=== PATIENT | male | born 1945 | race African-American/Black ===

== ENCOUNTER 2023-05-13 03:26 | Inpatient (IN) | payer OTHER ==
[2023-05-13] VITALS (8 sets, daily range): BP systolic 142–172; BP diastolic 63–94; PULSE 68–79; RESP 18–24; TEMP 97.8–98.6; O2SAT 95–100
[~2023-05-13] VITALS: Ht 182.9 cm; Wt 74.6 kg
[2023-05-13] MEDS ORDERED: MethylPREDNISolone SOD SUCC 125 MG/2 ML VIAL ONE (03:33)
[2023-05-13] MEDS ORDERED: FUROSEMIDE 40 MG/4 ML VIAL ONE (03:34)
[2023-05-13] MEDS ORDERED: 0.9% SODIUM CHLORIDE 10 ML SYRINGE IVP PRN (03:45)
[2023-05-13 03:48] LABS: BASOPHILS % (AUTO) 1.1 % (0.0-2.0); EOSINOPHILS % (AUTO) 1.4 % (1.0-6.0); HEMATOCRIT 27.5 % (41-53); LYMPHOCYTES # (AUTO) 5.6 K/uL (1.0-4.8); LYMPHOCYTES % (AUTO) 44.1 % (22.0-44.0); MEAN CORPUSCULAR HGB CONC 32.7 G/dL (31.0-37.0); MEAN CORPUSCULAR VOLUME 92 fL (80-100); MONOCYTES # (AUTO) 0.8 K/uL (0.1-1.0); MONOCYTES % (AUTO) 6.4 % (2.0-9.0); PLATELET COUNT (AUTO) 236 K/uL (150-450); RED CELL DISTRIBUTION WIDTH 14.6 % (11.5-14.5); WHITE BLOOD COUNT (AUTO) 12.7 K/uL (4.5-11.0)
[2023-05-13 03:48] LABS: ABG BASE EXCESS -9.6 mmol/L (-2.0-3.0); ABG CARBOXYHEMOGLOBIN 0.3 % (0.0-1.5); ABG METHEMOGLOBIN 0.6 % (0.0-1.5); ABG OXYGEN CONTENT 13.4 mL/dL (15.0-23.0); ABG OXYGEN SATURATION 95.1 % (95.0-98.0); ABG OXYHEMOGLOBIN 94.2 % (94.0-100.0); ABG PCO2 44 mmHg (35-45); ABG PH 7.229 (7.35-7.450); O2 DEVICE,BLOOD GAS BIPAP (ROOM AIR); PO2, ARTERIAL BG 90.6 mmHg (71.0-79.0); SITE, BLOOD GAS RT BRACHIAL; SOURCE, BLOOD GAS ARTERIAL; TEMPERATURE, FAHRENHEIT, BG 98.5 FAHREN (96.0-98.6)
[2023-05-13 03:49] LABS: INSPIRATORY TIME, BG 0.9 SEC; SPONTANEOUS VT, BG 418 ml
[2023-05-13 03:56] LABS: INR 1.2 (0.9-1.1); PROTHROMBIN TIME 12.1 SEC (9.4-11.6)
[2023-05-13 04:05] LABS: ANION GAP 14 mmol/L (8-16); CALCIUM, TOTAL 8.7 mg/dL (8.8-10.5); CARBON DIOXIDE 23 mmol/L (22-29); CHLORIDE 99 mmol/L (98-107); CREATININE 1.83 mg/dL (0.60-1.30); GLOMERULAR FILTR. RATE CALC 43 mL/min (>60); GLUCOSE,RANDOM 207 mg/dL (70-110); POTASSIUM 3.8 mmol/L (3.5-5.1); SODIUM SERUM 136 mmol/L (136-145); UREA NITROGEN, BLOOD 46 mg/dL (7-18)
[2023-05-13 04:07] LABS: LACTIC ACID 5.3 mmol/L (0.4-2.0)
[2023-05-13] MEDS: MethylPREDNISolone SOD SUCC 125 MG/2 ML VIAL IVP ONE (04:09)
[2023-05-13] MEDS: FUROSEMIDE 40 MG/4 ML VIAL IVP ONE (04:10)
[2023-05-13 04:12] LABS: ALANINE AMINOTRANSFERASE 18 U/L (12-78); ALBUMIN 2.7 g/dL (3.4-5.0); ALKALINE PHOSPHATASE 100 U/L (46-116); ASPARTATE AMINOTRANSFERASE 24 U/L (15-37); BILIRUBIN,TOTAL 0.4 mg/dL (0.1-1.0); CREATINE KINASE, TOTAL ONLY 144 U/L (39-308); TOTAL PROTEIN, SERUM 8.4 g/dL (6.4-8.2)
[2023-05-13 04:14] LABS: TROPONIN I-HIGH SENSITIVITY 35 ng/L (<76)
[2023-05-13 04:20] LABS: APPEARANCE,URINE CLEAR (CLEAR); BILIRUBIN,URINE NEGATIVE (NEGATIVE); COLOR,URINE COLORLESS (YELLOW); GLUCOSE, URINE (UA) >=1000 mg/dL (NEGATIVE); KETONES,URINE NEGATIVE (NEGATIVE); LEUKOCYTE ESTERASE ,URINE NEGATIVE (NEGATIVE); NITRATE,URINE NEGATIVE (NEGATIVE); OCCULT BLOOD,URINE SMALL (NEGATIVE); PH,URINE 5.5 (5.0-8.0); PROTEIN,URINE 100-200,SEE CONFIRM mg/dL (NEGATIVE); SPECIFIC GRAVITIY, URINE 1.007 (1.003-1.030); UROBILINOGEN,URINE <=1.0 mg/dL (<=1.0)
[2023-05-13 04:30] LABS: SULFOSALICYLIC ACID,URINE 1+ (Negative)
[2023-05-13 04:31] LABS: BACTERIA,URINE None Seen /HPF (None Seen); RBC,URINE 0-2 /HPF (0-2); SQUAMOUS EPITHELIAL CELL,UR None Seen /LPF (None Seen); WBC,URINE 0-2 /HPF (0-5)
[2023-05-13] MEDS: LEVOFLOXACIN 500 MG/D5% WATER 100 ML IV ONE (04:37)
[2023-05-13 04:56] LABS: INFLUENZA A-RTPCR,COMBO NEGATIVE (NEGATIVE); INFLUENZA B-RTPCR,COMBO NEGATIVE (NEGATIVE); RESPIRATORY SYNCYTIAL VRS-PCR NEGATIVE (NEGATIVE); SARS COVID19 RTPCR, COMBO NEGATIVE (NEGATIVE)
[2023-05-13 05:08] LABS: B-TYPE NATRIURETIC PEPTIDE 2670 pg/mL (0-100)
[2023-05-13] MEDS ORDERED: ACETAMINOPHEN 325 MG TABLET PO PRN ×2 (05:15→08:45)
[2023-05-13] MEDS ORDERED: ONDANSETRON HCL 4 MG/2 ML VIAL IVP PRN (05:15)
[2023-05-13] MEDS ORDERED: ALBUTEROL SULFATE 2.5 MG/0.5 ML NEB SOLUTION NEB PRN (08:45)
[2023-05-13] MEDS ORDERED: DEXTROSE 50%-WATER 25 GM/50 ML SYRINGE IVP PRN (08:45)
[2023-05-13] MEDS: ASPIRIN 81 MG CHEWABLE TABLET PO SCH (09:00)
[2023-05-13] MEDS: MethylPREDNISolone SOD SUCC 125 MG/2 ML VIAL IVP SCH (10:11)
[2023-05-13] MEDS: FUROSEMIDE 40 MG/4 ML VIAL IVP SCH (10:12)
[2023-05-13] MEDS: DOCUSATE SODIUM 100 MG CAPSULE PO SCH (10:13)
[2023-05-13] MEDS: FAMOTIDINE 20 MG TABLET PO SCH (10:14)
[2023-05-13] MEDS: ATORVASTATIN CALCIUM 20 MG TABLET PO SCH (10:14)
[2023-05-13] MEDS: LOSARTAN POTASSIUM 25 MG TABLET PO SCH (10:14)
[2023-05-13] MEDS: METOPROLOL SUCCINATE 25 MG ER TABLET PO SCH (10:15)
[2023-05-13] MEDS: INSULIN LISPRO 100 UNITS/ML SQ PRN (12:34)
[2023-05-13 14:57] LABS: APPEARANCE,URINE CLEAR (CLEAR); BILIRUBIN,URINE NEGATIVE (NEGATIVE); COLOR,URINE COLORLESS (YELLOW); GLUCOSE, URINE (UA) >=1000 mg/dL (NEGATIVE); KETONES,URINE NEGATIVE (NEGATIVE); LEUKOCYTE ESTERASE ,URINE NEGATIVE (NEGATIVE); NITRATE,URINE NEGATIVE (NEGATIVE); OCCULT BLOOD,URINE SMALL (NEGATIVE); PH,URINE 5.5 (5.0-8.0); PROTEIN,URINE 100-200,SEE CONFIRM mg/dL (NEGATIVE); SPECIFIC GRAVITIY, URINE 1.009 (1.003-1.030); UROBILINOGEN,URINE <=1.0 mg/dL (<=1.0)
[2023-05-13 15:03] LABS: RBC,URINE 0-2 /HPF (0-2); WBC,URINE 0-2 /HPF (0-5)
[2023-05-13 15:04] LABS: BACTERIA,URINE None Seen /HPF (None Seen)
[2023-05-13] MEDS ORDERED: TAMS0.4C94 PO (16:55)
[2023-05-13] MEDS ORDERED: LISI-663 PO (16:55)
[2023-05-13] MEDS ORDERED: EPLE50TA PO (16:55)
[2023-05-13] MEDS ORDERED: AMLO5TAB66 PO (16:55)
[2023-05-13] MEDS ORDERED: EMPA25TA3 PO (16:55)
[2023-05-13] MEDS ORDERED: FERR-82 PO (16:55)
[2023-05-13] MEDS ORDERED: FURO-151 PO (16:55)
[2023-05-13] MEDS ORDERED: EZET10TA82 PO (16:55)
[2023-05-13] MEDS ORDERED: CLOP-31 PO (16:55)
[2023-05-13] MEDS ORDERED: ATOR40TA28 PO (16:55)
[2023-05-13] MEDS ORDERED: CARV12.530 PO (16:55)
[2023-05-13] MEDS: HEPARIN SODIUM,PORCINE 5,000 UNITS/ML VIAL SQ SCH (17:58)
[2023-05-14] VITALS (8 sets, daily range): BP systolic 132–161; BP diastolic 70–80; PULSE 58–69; RESP 18; TEMP 98.1–98.9; O2SAT 98
[2023-05-14 12:07] LABS: HEPATITIS C AB (EIA) Non Reactive (Non Reactive)
[2023-05-14 22:31] LABS: GLUCOMETER DEV NAME(LOC) 5N.1C; GLUCOSE,POINT OF CARE 160 MG/DL (70-110)
[2023-05-15 00:25] VITALS: BP 136/74; PULSE 61; RESP 18; TEMP 98.3
[2023-05-15 02:07] LABS: GLUCOMETER DEV NAME(LOC) 5S.1B; GLUCOSE,POINT OF CARE 194 MG/DL (70-110)
[2023-05-15 02:07] LABS: GLUCOMETER DEV NAME(LOC) 5S.1B; GLUCOSE,POINT OF CARE 259 MG/DL (70-110)
[2023-05-15 02:07] LABS: GLUCOMETER DEV NAME(LOC) 5S.1B; GLUCOSE,POINT OF CARE 206 MG/DL (70-110)
[2023-05-15 02:07] LABS: GLUCOMETER DEV NAME(LOC) 5S.1B; GLUCOSE,POINT OF CARE 250 MG/DL (70-110)
[2023-05-15 02:07] LABS: GLUCOMETER DEV NAME(LOC) 5S.1B; GLUCOSE,POINT OF CARE 228 MG/DL (70-110)
[2023-05-15 02:07] LABS: GLUCOMETER DEV NAME(LOC) 5S.1B; GLUCOSE,POINT OF CARE 270 MG/DL (70-110)
[2023-05-15 04:53] VITALS: BP 151/73; PULSE 64; RESP 18; TEMP 98.3
[2023-05-15 07:48] VITALS: BP 166/86; PULSE 74; RESP 20; TEMP 98.2
[2023-05-15] MEDS: CLOPIDOGREL BISULFATE 75 MG TABLET PO SCH (10:01)
[2023-05-15] MEDS: TAMSULOSIN HCL 0.4 MG CAPSULE PO SCH (10:03)
[2023-05-15 11:46] VITALS: BP 157/73; PULSE 61; RESP 19; TEMP 98
[2023-05-15 16:08] LABS: BASOPHILS % (AUTO) 0.3 % (0.0-2.0); EOSINOPHILS % (AUTO) 0 % (1.0-6.0); HEMATOCRIT 25.3 % (41-53); HEMOGLOBIN 8.3 g/dL (13.5-17.5); LYMPHOCYTES # (AUTO) 0.7 K/uL (1.0-4.8); LYMPHOCYTES % (AUTO) 4.6 % (22.0-44.0); MEAN CORPUSCULAR HEMOGLOBIN 29.4 pg (26.0-34.0); MEAN CORPUSCULAR VOLUME 89 fL (80-100); MONOCYTES # (AUTO) 0.7 K/uL (0.1-1.0); MONOCYTES % (AUTO) 4.6 % (2.0-9.0); NEUTROPHILS # (AUTO) 13.2 K/uL (1.8-7.7); PLATELET COUNT (AUTO) 198 K/uL (150-450); RED BLOOD CELL COUNT(AUTO) 2.84 MIL/uL (4.50-5.90); RED CELL DISTRIBUTION WIDTH 14.5 % (11.5-14.5); WHITE BLOOD COUNT (AUTO) 14.5 K/uL (4.5-11.0)
[2023-05-15 16:10] LABS: NEUTROPHILS % (AUTO) 90.5 % (40.0-70.0)
[2023-05-15 16:18] LABS: CALCIUM, TOTAL 8.8 mg/dL (8.8-10.5); CREATININE 2.25 mg/dL (0.60-1.30); POTASSIUM 3.6 mmol/L (3.5-5.1)
[2023-05-15] MEDS ORDERED: PANT-31 PO (16:20)
[2023-05-15 17:07] VITALS: BP 130/80; PULSE 86; RESP 20; TEMP 98.3
[2023-05-18 02:36] LABS: GLUCOMETER DEV NAME(LOC) 5N.2C; GLUCOSE,POINT OF CARE 288 MG/DL (70-110)
== END 2023-05-15 17:00 | disposition home or self-care (01) | DRG 291 ==
LOC: EMS 03:27 → 5S 05:41
PROVIDERS: ADMIT Internal Medicine; ATTEND Internal Medicine
PROC: 5A09357 Assistance with Respiratory Ventilation, Less than 24 Consecutive Hours, Continuous Positive Airway Pressure (ICD-10-PCS; principal; 2023-05-13)
DX: I13.0 Hypertensive heart and chronic kidney disease with heart failure and stage 1 through stage 4 chronic kidney disease, or unspecified chronic kidney disease (principal); I50.23 Acute on chronic systolic (congestive) heart failure; J96.01 Acute respiratory failure with hypoxia; E87.20 Acidosis, unspecified; J44.1 Chronic obstructive pulmonary disease with (acute) exacerbation; J44.0 Chronic obstructive pulmonary disease with (acute) lower respiratory infection; E11.22 Type 2 diabetes mellitus with diabetic chronic kidney disease; I25.10 Atherosclerotic heart disease of native coronary artery without angina pectoris; N18.30 Chronic kidney disease, stage 3 unspecified; Z20.822 Contact with and (suspected) exposure to COVID-19; D63.8 Anemia in other chronic diseases classified elsewhere; I08.3 Combined rheumatic disorders of mitral, aortic and tricuspid valves; I25.2 Old myocardial infarction; Z83.3 Family history of diabetes mellitus; Z95.5 Presence of coronary angioplasty implant and graft
CPT/HCPCS: 0241U; 36600; 71045; 80048; 80053; 81001; 81002; 81003; 82550; 82805; 82962; 83605; 83880; 84145; 84484; 85025; 85610; 86803; 87040; 87081; 87340; 93005; 94660; 99291; J1644; J1940; J1956; J2930; 36415-L1; 36415-TC